=== PATIENT | male | born 1980 | race American Indian/Alaskan Native ===

== ENCOUNTER 2017-09-11 11:01 | Emergency (ER) | payer OTHER ==
[2017-09-11 11:28] VITALS: RESP 18; O2SAT 99
--- NOTE | 2017-09-11 11:53 | ED PDOC ---
Arrival/HPI - General Time Seen by Provider: 09/11/17 11:09 Historian: Patient - History of Present Illness Narrative History of Present Illness (Text): 09/11/17 11:21 Fidel Sanchez is a 37 year old male, whose past medical history includes HIV, who presents to the emergency department complaining of sinus congestion with excessive sputum for 3 days. Patient notes that he experiences persistent coughs with post-tussive chest pain and throat pain. Patient has taken Mucinex to some relief. Patient is unsure if he had a fever because he did not check his temperature. Patient denies any abdominal pain, nausea, vomiting, diarrhea, back pain, neck pain, urinary/bowel changes, headache, dizziness, or any other complaint. Time/Duration: < week Symptom Onset: Gradual Symptom Course: Unchanged Activities at Onset: Rest Context: Home Past Medical History - Provider Review Nursing Documentation Reviewed: Yes - Infectious Disease Hx of Infectious Diseases: None - Tetanus Immunization Tetanus Immunization: Unknown - Past Medical History Past Medical History: No Previous - Hematological/Oncological Hx HIV: Yes - Psychiatric Hx Psychophysiologic Disorder: No Hx Anxiety: No Hx Bipolar Disorder: No Hx Depression: No Hx Emotional Abuse: No Hx Hallucinations: No Hx Panic Disorder: No Hx Post Traumatic Stress Disorder: No Hx Psychosis: No Hx Physical Abuse: No Hx Schizophrenia: No Hx Sexual Abuse: No Hx Substance Use: No - Past Surgical History Past Surgical History: Non-Contributing - Surgical History Hx Appendectomy: Yes - Anesthesia Hx Anesthesia: Yes Hx Anesthesia Reactions: No Hx Malignant Hyperthermia: No - Suicidal Assessment Feels Threatened In Home Enviroment: No Family/Social History - Physician Review Nursing Documentation Reviewed: Yes Family/Social History: No Known Family HX Smoking Status: Never Smoked Hx Alcohol Use: Yes Hx Substance Use: No Hx Substance Use Treatment: No Allergies/Home Meds Allergies/Adverse Reactions: Allergies No Known Allergies Allergy (Verified 02/19/15 12:43) Review of Systems - Physician Review All systems were reviewed & negative as marked: Yes - Review of Systems Constitutional: absent: Fevers, Night Sweats Eyes: absent: Vision Changes ENT: Sinus Congestion. absent: Hearing Changes Respiratory: Cough Cardiovascular: Chest Pain (Post-tussive) Gastrointestinal: absent: Abdominal Pain Genitourinary Male: absent: Dysuria, Frequency Musculoskeletal: absent: Arthralgias, Back Pain Skin: absent: Rash Neurological: absent: Headache, Dizziness Endocrine: absent: Diaphoresis Hemo/Lymphatic: absent: Adenopathy Psychiatric: absent: Anxiety Physical Exam Vital Signs Reviewed: Yes Vital Signs Temp Pulse Resp BP Pulse Ox 09/11/17 12:59 100.6 F H 79 18 111/58 L 99 09/11/17 11:28 101.5 F H 87 18 109/50 L 99 Temperature: Febrile Pulse: Regular Respiratory Rate: Normal Pain Distress: None - Systems Exam Head: Present: Atraumatic, Normocephalic Pupils: Present: PERRL Extroacular Muscles: Present: EOMI Conjunctiva: Present: Normal Mouth: Present: Moist Mucous Membranes Pharnyx: Present: ERYTHEMA. No: EXUDATE, TONSILS ENLARGED Nose (Internal): Present: Other (Nasal congestion) Neck: Present: Normal Range of Motion Respiratory/Chest: Present: Clear to Auscultation, Good Air Exchange. No: Respiratory Distress, Accessory Muscle Use Cardiovascular: Present: Regular Rate and Rhythm, Normal S1, S2. No: Murmurs Abdomen: Present: Normal Bowel Sounds. No: Tenderness, Distention, Peritoneal Signs Back: Present: Normal Inspection Upper Extremity: Present: Normal Inspection. No: Cyanosis, Edema Lower Extremity: Present: Normal Inspection. No: Edema Neurological: Present: GCS=15, CN II-XII Intact, Speech Normal Skin: Present: Warm Psychiatric: Present: Alert, Oriented x 3, Normal Insight, Normal Concentration Medical Decision Making ED Course and Treatment: 09/11/17 11:35 Impression: 37 year old male complaining of sinus congestion with excessive sputum for 3 days. Differential Diagnosis included but are not limited to: Pneumonia vs. Strep Throat Plan: -- Chest X-ray -- Tylenol -- Reassess and disposition Prior Visits: Notes and results from previous visits were reviewed. Patient was last seen in the emergency department on 09/21/15 for right sided headache, ear pain, and throat pain for about a week Progress Notes: 09/11/17 12:25 Chest X-ray: Creator : Marilee Smith MD FINDINGS: LINES AND TUBES:None. LUNG AND PLEURA:The lungs are well inflated and clear. There is linear atelectasis/scarring in the left lower lobe. HEART AND MEDIASTINUM:The heart is not enlarged. The hilar and mediastinal contours are within normal limits. SKELETAL STRUCTURES:The bony structures are within normal limits for the patient 's age. VISUALIZED UPPER ABDOMEN:Normal. OTHER FINDINGS:None. IMPRESSION: No active pulmonary disease. Patient's CXR normal. He had signs for strep so will treat with Augmentin. He was advised to return to the ED if symptoms worsen or any other concern. He was advised to make sure he keeps well hydrated. - Lab Interpretations Lab Results: Lab Results 09/11/17 12:00: Influenza Typ A,B (EIA) Negative for flu a/b - RAD Interpretation Radiology Orders: 09/11/17 11:28 CHEST TWO VIEWS (PA/LAT) [RAD] Stat - Medication Orders Current Medication Orders: Discontinued Medications Acetaminophen (Tylenol 325mg Tab) 975 mg PO STAT STA Stop: 09/11/17 11:33 Last Admin: 09/11/17 12:03 Dose: 975 mg - Scribe Statement The provider has reviewed the documentation as recorded by the Debo Soni Provider Scribe Attestation: All medical record entries made by the Jerryibeddie were at my direction and personally dictated by me. I have reviewed the chart and agree that the record accurately reflects my personal performance of the history, physical exam, medical decision making, and the department course for this patient. I have also personally directed, reviewed, and agree with the discharge instructions and disposition. Disposition/Present on Arrival - Present on Arrival Any Indicators Present on Arrival: No History of DVT/PE: No History of Uncontrolled Diabetes: No Urinary Catheter: No History Surgical Site Infection Following: None - Disposition Have Diagnosis and Disposition been Completed?: Yes Diagnosis: Acute pharyngitis Disposition: HOME/ ROUTINE Disposition Time: 12:59 Patient Plan: Discharge Condition: GOOD Discharge Instructions (ExitCare): Pharyngitis (ED) Additional Instructions: Mr Sanchez, thank you for letting us take care of you today. Your provider was Dr. Quinonez. You were treated for Pharyngitis. The emergency medical care you received today was directed at your acute symptoms. If you were prescribed any medication, please fill it and take as directed. It may take several days for your symptoms to resolve. Return to the Emergency Department if your symptoms worsen, do not improve, or if you have any other problems. Please contact your doctor or call one of the physicians/clinics you have been referred to that are listed on the Patient Visit Information form that is included in your discharge packet. Bring any paperwork you were given at discharge with you along with any medications you are taking to your follow up visit. Our treatment cannot replace ongoing medical care by a primary care provider (PCP) outside of the emergency department. Thank you for allowing the [facility] team to be part of your care today. If you had an X-Ray or CT scan: A Radiologist will review the ED reading if any change in treatment is needed we will contact you. If you had a blood, urine, or wound culture: It will take several days for the results, if any change in treatment is needed we will contact you. If you had an STI test: It will take 48 hours for the results. Please call after 1 week if you have not heard back. Prescriptions: Amoxicillin/Clavulanate [Augmentin 875 MG-125 MG] 1 tab PO BID #20 tab Referrals: Rebeca Ewing MD [Primary Care Provider] - Follow up with primary Forms: [employer] (French), WORK NOTE
[2017-09-11 12:17] VITALS: BMI 3612.6
--- NOTE | 2017-09-11 12:21 | RAD ---
HISTORY: COMPARISON: No prior. TECHNIQUE: Chest PA and lateral FINDINGS: LINES AND TUBES: None. LUNG AND PLEURA: The lungs are well inflated and clear. There is linear atelectasis/scarring in the left lower lobe. HEART AND MEDIASTINUM: The heart is not enlarged. The hilar and mediastinal contours are within normal limits. SKELETAL STRUCTURES: The bony structures are within normal limits for the patient's age. VISUALIZED UPPER ABDOMEN: Normal. OTHER FINDINGS: None. IMPRESSION: No active pulmonary disease.
[2017-09-11 13:00] VITALS: BP 111/58; PULSE 79; TEMP 100.6
== END 2017-09-11 12:40 | disposition home or self-care (01) ==
LOC: ED 11:01
DX: J02.9 Acute pharyngitis, unspecified (principal)